=== PATIENT | female | born 1995 | race African-American/Black ===

== ENCOUNTER 2023-07-17 17:42 | Emergency (ER) | payer BC ==
[~2023-07-17] VITALS: Ht 165.1 cm; Wt 72.0 kg
[2023-07-17 17:51] VITALS: BP 130/90; PULSE 81; RESP 18; TEMP 98.4; O2SAT 99
[2023-07-17 20:03] LABS: CLARITY URINE CLEAR (CLEAR); COLOR URINE YELLOW (YELLOW); GLUCOSE URINE NEGATIVE (NEGATIVE); KETONES URINE NEGATIVE (NEGATIVE); LEUKOCYTE ESTERASE URINE NEGATIVE (NEGATIVE); NITRITE URINE NEGATIVE (NEGATIVE); OCCULT BLOOD URINE NEGATIVE (NEGATIVE); PH URINE 6.5 (4.5-8.0); PROTEIN URINE NEGATIVE (NEGATIVE); SPECIFIC GRAVITY URINE 1.013 (1.005-1.030); UROBILINOGEN URINE 0.2 E.U./dL (0.2-1.0)
[2023-07-17 20:19] LABS: BASOPHILS % 0.9 % (0.0-2.0); EOSINOPHILS % 0.9 % (0.0-5.0); HEMATOCRIT. 31.9 % (36.0-48.0); HEMOGLOBIN. 10.4 g/dL (12.0-16.0); LYMPHOCYTES % 44.4 % (20.0-50.0); MEAN CORPUSCULAR HEMOGLOBIN 27.2 pg (28.0-32.0); MEAN CORPUSCULAR HGB CONC 32.6 g/dL (31.0-37.0); MEAN CORPUSCULAR VOLUME 83.7 fL (81.0-99.0); MEAN PLATELET VOLUME 8.4 fl (7.4-10.4); MONOCYTES % 9.8 % (2.0-8.0); PLATELET 350 x1000/uL (130-400); RED BLOOD CELL COUNT 3.81 mill/uL (4.2-5.4); RED CELL DISTRIBUTION WIDTH 14.8 % (11.6-14.6); WHITE BLOOD COUNT 6.7 x1000/uL (4.5-11.0)
[2023-07-17 20:31] LABS: ALANINE AMINOTRANSFERASE 8 IU/L (10-49); ALBUMIN 4.7 g/dL (3.2-4.8); ASPARTATE AMINOTRANSFERASE 21 IU/L (<34); BILIRUBIN TOTAL 0.3 mg/dL (0.1-1.0); CALCIUM 9.4 mg/dL (8.7-10.4); CARBON DIOXIDE 26 mEq/L (21-32); CHLORIDE 104 mEq/L (98-107); CREATININE 0.7 mg/dL (0.6-1.0); GLUCOSE 83 mg/dL (70-105); POTASSIUM 4.1 mEq/L (3.5-5.1); PROTEIN TOTAL 7.5 g/dL (6.0-8.3); SODIUM 136 mEq/L (136-145); UREA NITROGEN BLOOD 8 mg/dL (9-23)
== END 2023-07-17 19:57 | disposition home or self-care (01) ==
LOC: ER 18:48
DX: Z00.00 Encounter for general adult medical examination without abnormal findings (principal)
CPT/HCPCS: 36415; 80053; 81003; 85025; 99283

== ENCOUNTER 2023-08-14 22:03 | Emergency (ER) | payer BC ==
[~2023-08-14] VITALS: Ht 165.1 cm; Wt 73.0 kg
[2023-08-14 22:12] VITALS: TEMP 98; O2SAT 98
[2023-08-14] MEDS: KETOROLAC 60MG/2ML VIAL IM STA (23:26)
[2023-08-14] MEDS: BACITRACIN ZINC OINT UDPKT TOP ONE (23:27)
[2023-08-14] MEDS: TETANUS, DIPHTHERIA, PERTUSSIS VAC/PF 0.5ML (>10YR OLD) IM ONE (23:36)
[2023-08-14] MEDS ORDERED: NAPR-681 PO (23:53)
[2023-08-14] MEDS ORDERED: AMOX1TAB16 PO (23:53)
[2023-08-15 00:22] VITALS: BP 144/92; PULSE 98; RESP 18
== END 2023-08-15 00:20 | disposition home or self-care (01) ==
LOC: ER 22:03
DX: S71.151A Open bite, right thigh, initial encounter (principal); W54.0XXA Bitten by dog, initial encounter; Y93.89 Activity, other specified; Y92.89 Other specified places as the place of occurrence of the external cause; Y99.8 Other external cause status
CPT/HCPCS: 73552; 90715; 90471; 96372; 99284; J1885; Z7610

== ENCOUNTER 2023-08-30 07:31 | Emergency (ER) | payer BC ==
[~2023-08-30] VITALS: Ht 165.1 cm; Wt 73.0 kg
[~2023-08-30 07:31] MED LIST: AMOX1TAB16 PO; NAPR-681 PO
[2023-08-30 07:41] VITALS: BP 120/80; PULSE 80; RESP 20; TEMP 98.6; O2SAT 99
[2023-08-30 08:34] LABS: BASOPHILS % 0.7 % (0.0-2.0); EOSINOPHILS % 1.8 % (0.0-5.0); HEMOGLOBIN. 10.4 g/dL (12.0-16.0); LYMPHOCYTES % 44.6 % (20.0-50.0); MEAN CORPUSCULAR HEMOGLOBIN 26.9 pg (28.0-32.0); MEAN CORPUSCULAR HGB CONC 32.5 g/dL (31.0-37.0); MEAN CORPUSCULAR VOLUME 82.9 fL (81.0-99.0); MEAN PLATELET VOLUME 8.3 fl (7.4-10.4); MONOCYTES % 13.1 % (2.0-8.0); NEUTROPHILS % 39.8 % (40.0-76.0); PLATELET 403 x1000/uL (130-400); RED BLOOD CELL COUNT 3.86 mill/uL (4.2-5.4); RED CELL DISTRIBUTION WIDTH 15.3 % (11.6-14.6); WHITE BLOOD COUNT 5.5 x1000/uL (4.5-11.0)
== END 2023-08-30 08:53 | disposition home or self-care (01) ==
LOC: ER 07:31
DX: D50.8 Other iron deficiency anemias (principal)
CPT/HCPCS: 36415; 85025; 99283

== ENCOUNTER 2024-05-12 14:35 | Emergency (ER) | payer BC ==
[~2024-05-12] VITALS: Ht 167.6 cm; Wt 77.2 kg
[2024-05-12 14:50] VITALS: TEMP 98.3; O2SAT 98
[2024-05-12] MEDS: SODIUM CHLORIDE 0.9% 1,000 ML IV ONE (15:21)
[2024-05-12] MEDS: ONDANSETRON HCL 4MG/2ML INJ IV ONE (15:21)
[2024-05-12] MEDS: MORPHINE SULFATE 4 MG/ML INJ (FOR IV/IM USE) IV ONE (15:21)
[2024-05-12 15:30] LABS: BASOPHILS % 0.2 % (0.0-2.0); EOSINOPHILS % 0.1 % (0.0-5.0); HEMATOCRIT. 39.6 % (36.0-48.0); HEMOGLOBIN. 13.3 g/dL (12.0-16.0); LYMPHOCYTES % 14.1 % (20.0-50.0); MEAN CORPUSCULAR HGB CONC 33.5 g/dL (31.0-37.0); MEAN CORPUSCULAR VOLUME 89.6 fL (81.0-99.0); MEAN PLATELET VOLUME 8.6 fl (7.4-10.4); MONOCYTES % 4.8 % (2.0-8.0); NEUTROPHILS % 80.8 % (40.0-76.0); PLATELET 276 x1000/uL (130-400); RED BLOOD CELL COUNT 4.42 mill/uL (4.2-5.4); RED CELL DISTRIBUTION WIDTH 12.1 % (11.6-14.6); WHITE BLOOD COUNT 6.2 x1000/uL (4.5-11.0)
[2024-05-12 15:40] LABS: HCG SCREEN NEGATIVE
[2024-05-12 15:44] LABS: CHLORIDE 102 mEq/L (98-107); SODIUM 137 mEq/L (136-145)
[2024-05-12 15:45] LABS: CARBON DIOXIDE 29 mEq/L (21-32)
[2024-05-12 15:46] LABS: CALCIUM 9.7 mg/dL (8.7-10.4)
[2024-05-12 15:50] LABS: CREATININE 0.8 mg/dL (0.6-1.0); GLUCOSE 99 mg/dL (70-105)
[2024-05-12 15:51] LABS: UREA NITROGEN BLOOD 12 mg/dL (9-23)
[2024-05-12 15:52] LABS: ALANINE AMINOTRANSFERASE 14 IU/L (10-49); ALBUMIN 4.8 g/dL (3.2-4.8); ASPARTATE AMINOTRANSFERASE 19 IU/L (<34)
[2024-05-12 15:53] LABS: BILIRUBIN TOTAL 0.4 mg/dL (0.1-1.0); PROTEIN TOTAL 8.4 g/dL (6.0-8.3)
[2024-05-12] MEDS ORDERED: GLYCERIN ADULT SUPPOSITORY PR ONE (17:00)
[2024-05-12 17:35] LABS: CLARITY URINE CLEAR (CLEAR); COLOR URINE YELLOW (YELLOW); GLUCOSE URINE NEGATIVE (NEGATIVE); KETONES URINE 1+ (NEGATIVE); LEUKOCYTE ESTERASE URINE NEGATIVE (NEGATIVE); NITRITE URINE NEGATIVE (NEGATIVE); OCCULT BLOOD URINE NEGATIVE (NEGATIVE); PROTEIN URINE NEGATIVE (NEGATIVE); SPECIFIC GRAVITY URINE 1.018 (1.005-1.030); UROBILINOGEN URINE 0.2 E.U./dL (0.2-1.0)
[2024-05-12] MEDS ORDERED: SENN-371 MT (17:53)
[2024-05-12] MEDS ORDERED: MAGN296S70 MT (17:53)
[2024-05-12] MEDS: KETOROLAC 30MG/ML VIAL IV ONE (18:27)
[2024-05-12] MEDS: NA PHOS,M-B/NA PHOS,DI-BA ENEMA 118ML PR ONE (18:31)
[2024-05-12] MEDS: GLYCERIN 0.3GM/0.3ML RECTAL SOLN (NEONATAL) PR NR (18:31)
[2024-05-12] MEDS: PHENYLEPHRINE/SHK LV/MO/PET RECTAL OINTMENT 28GM PR SCH (18:31)
[2024-05-12 19:45] VITALS: BP 121/53; PULSE 69; RESP 16; O2SAT 98
[2024-05-12] MEDS ORDERED: IOHEXOL-300 100 ML BOTTLE ONE (23:34)
== END 2024-05-12 19:55 | disposition home or self-care (01) ==
LOC: ER 14:35 → EEVIPCON 14:35 → ER 19:55
DX: K59.00 Constipation, unspecified (principal); R33.9 Retention of urine, unspecified; D64.9 Anemia, unspecified; Z98.890 Other specified postprocedural states
CPT/HCPCS: 80053; 81003; 84703; 83690; 85025; 36415; 74177; 51701; 96361; 96374; 96375; 99285; Q9967; J1885; J2405; J2270; J7030; Z7610 ×5; 51702

== ENCOUNTER 2024-08-16 02:19 | Emergency (ER) | payer BC ==
[~2024-08-16] VITALS: Ht 165.1 cm; Wt 70.0 kg
[~2024-08-16 02:19] MED LIST changes: +MAGN296S70 MT; +SENN-371 MT
[2024-08-16 02:23] VITALS: O2SAT 100
[2024-08-16 02:41] VITALS: BP 123/72; PULSE 105; RESP 18; TEMP 37.1; O2SAT 99
[2024-08-16] MEDS ORDERED: AMOX1TAB16 MT (02:51)
== END 2024-08-16 03:02 | disposition home or self-care (01) ==
LOC: ER 02:27
DX: L03.011 Cellulitis of right finger (principal); Z88.8 Allergy status to other drugs, medicaments and biological substances; Z91.041 Radiographic dye allergy status
CPT/HCPCS: 26011; 99284